=== PATIENT | female | born 1970 | race African-American/Black ===

== ENCOUNTER 2016-08-13 00:30 | Inpatient (IN) | payer OTHER ==
[~2016-08-13] VITALS: Ht 167.6 cm; Wt 61.2 kg
[2016-08-13 00:30] VITALS: BP 122/74; PULSE 94; RESP 18; TEMP 98; O2SAT 99
[~2016-08-13 00:30] MED LIST: BENZ1TAB PO; HALO5 PO; REST15CA PO; TRAZ100T50 PO
[2016-08-13] MEDS ORDERED: ALUMINUM/MAGNESIUM/SIMETH 30 ML CUP PO PRN (01:15)
[2016-08-13] MEDS ORDERED: LORazepam 1 MG TAB PO PRN (01:15)
[2016-08-13] MEDS ORDERED: LORazepam 2 MG/ML VIAL IM PRN (01:15)
[2016-08-13 06:13] VITALS: BP 111/69; PULSE 78; RESP 18; TEMP 97.9; O2SAT 98
[2016-08-13] MEDS ORDERED: OLANZapine 5 MG TAB PO SCH (09:00)
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
[2016-08-13] MEDS: SERTRALINE HCL 50 MG TAB PO SCH (12:00)
[2016-08-13] MEDS: BENZTROPINE MESYLATE 1 MG TAB PO SCH ×2 (12:00→20:09)
[2016-08-13 18:32] VITALS: BP 100/69; PULSE 84; RESP 18; TEMP 98.2; O2SAT 99
[2016-08-13] MEDS: OLANZapine 10 MG TAB PO SCH (20:09)
[2016-08-13] MEDS: ACETAMINOPHEN 325 MG TAB PO PRN (22:31)
[2016-08-14 06:13] VITALS: BP 114/76; PULSE 76; RESP 16; TEMP 97.6
[2016-08-14] MEDS: SERTRALINE HCL 50 MG TAB PO SCH (09:00)
[2016-08-14] MEDS: OLANZapine 5 MG TAB PO SCH (09:17)
[2016-08-14] MEDS: BENZTROPINE MESYLATE 1 MG TAB PO SCH ×2 (09:17→20:22)
--- NOTE | 2016-08-14 10:51 | HHI.PYPN ---
Subjective Remarks Patient was seen and discussed with the icu staff nurse. Patient remained somewhat preoccupied and religiously preoccupied about with flights of ideas some rapid speech talking about spirits. But no behavior or management problem reported. She has been taking the medication. No side effects were complained. She has been having difficulty with the sleep we will adjust the medication. Encouraged to participate in all the therapeutic activity on the floor. Continue with the same treatment Review of Systems Except as stated in HPI: all other systems reviewed are Neg Psychiatric: COMPLAINS OF: Mood changes, Depression, Delusions Objective Alert: Yes [place]: Person, Place Mood: Other (somewhat hyper) Affect: Labile Memory Intact: Recent (mildly impaired) Hallucinations: Other (patient denies any active auditory or visual hallucination but seems to be responding to some internal stimuli) Delusions: Yes Delusion Type: Grandiose, Other (church preoccupation and with flights of ideas) Suicidal: Ideation (denies any suicidal ideation intentions or plan) Homicidal: Ideation (denies) Insight/Judgement Limited Remarks Attention and concentration improving. Gait normal. Language normal. Fund of knowledge average Vitals/IOs Vital Signs Date Time Temp Pulse Resp B/P Pulse Ox O2 Delivery O2 Flow Rate FiO2 08/14/16 06:13 97.6 76 16 114/76 08/13/16 18:32 99 Assessment & Plan Problem List: (1) schizoaffective disorder depressed Assessment & Plan Estimated LOS: days Justification for Cont. Inpt. Monitoring of the medication to stabilize her mood and risk of decompensation Request HC Surrog/Guard Advoc?: No Burt Rios MD Aug 14, 2016 10:51
[2016-08-14 19:10] VITALS: BP 106/65; PULSE 70; RESP 16; TEMP 97.9
[2016-08-14] MEDS: OLANZapine 10 MG TAB PO SCH (20:22)
[2016-08-15 06:11] VITALS: BP 108/101; PULSE 78; RESP 19; TEMP 97.4
[2016-08-15] MEDS: BENZTROPINE MESYLATE 1 MG TAB PO SCH ×2 (08:55→20:25)
[2016-08-15] MEDS: OLANZapine 5 MG TAB PO SCH (08:55)
[2016-08-15] MEDS: SERTRALINE HCL 50 MG TAB PO SCH (08:55)
[2016-08-15] MEDS: MAGNESIUM HYDROXIDE SUSP 30 ML CUP PO PRN (09:08)
--- NOTE | 2016-08-15 10:41 | HHI.PYPN ---
Subjective Remarks Patient was seen and discussed with the staffing specialist. Patient remains religiously preoccupied with hyper spirituality. She stated that ever since her mother when she was about 19 patient has been hearing voices. She also was talking to herself today hallucinating activity with the flights of ideas we will adjust the medication patient needs to stay in the hospital for stabilization on the medication. No behavior or management problem reported. Patient denied any active suicidal ideation intentions or plan and willing to take the medication Review of Systems Except as stated in HPI: all other systems reviewed are Neg Psychiatric: COMPLAINS OF: Mood changes, Depression, Hallucinations, Delusions Objective Alert: Yes [place]: Person, Place Mood: Other (somewhat hyper with flights of ideas and talking to herself internally preoccupied) Affect: Labile Memory Intact: Recent (mildly impaired) Hallucinations: Auditory, Other (patient was actively hallucinating internally preoccupied and talking to herself) Delusions: Yes Delusion Type: Grandiose, Other (jehovah's witness preoccupation and with flights of ideas) Suicidal: Ideation (denies any suicidal ideation intentions or plan) Homicidal: Ideation (denies) Insight/Judgement Limited Vitals/IOs Vital Signs Date Time Temp Pulse Resp B/P Pulse Ox O2 Delivery O2 Flow Rate FiO2 08/15/16 06:11 97.4 78 19 108/101 08/13/16 18:32 99 Assessment & Plan Problem List: (1) schizoaffective disorder depressed Assessment & Plan Estimated LOS: days Justification for Cont. Inpt. Monitoring of the medication risk of decompensation patient needs to be in the hospital for observation and stabilization on the medicine Request HC Surrog/Guard Advoc?: No Burt Rios MD Aug 15, 2016 10:41
[2016-08-15] MEDS: OLANZapine 10 MG TAB PO SCH ×2 (10:45→20:25)
[2016-08-15 19:28] VITALS: BP 109/70; PULSE 104; RESP 17; TEMP 98.8; O2SAT 97
[2016-08-16 05:10] VITALS: BP 113/68; PULSE 70; RESP 16; TEMP 97.7
[2016-08-16] MEDS: OLANZapine 10 MG TAB PO SCH ×2 (08:49→21:13)
[2016-08-16] MEDS: SERTRALINE HCL 50 MG TAB PO SCH (08:49)
[2016-08-16] MEDS: BENZTROPINE MESYLATE 1 MG TAB PO SCH ×2 (08:49→21:13)
--- NOTE | 2016-08-16 15:45 | HHI.PYPN ---
Subjective Remarks Patient was seen and case discussed with nursing. Patient describes delusions of a sexual nature. Where she feels like someone is inside of her. Auditory hallucinations described as spirits. Denies suicidal ideations thought or plan. Compliant with medications Objective Alert: Yes [place]: Person, Place Mood: Other (somewhat hyper with flights of ideas and talking to herself internally preoccupied) Affect: Labile Memory Intact: Recent (mildly impaired) Hallucinations: Auditory (spirits), Other (patient was actively hallucinating internally preoccupied and talking to herself) Delusions: Yes Delusion Type: Grandiose, Other (mandaen preoccupation and with flights of ideas) Suicidal: Ideation (denies any suicidal ideation intentions or plan) Homicidal: Ideation (denies) Insight/Judgement Poor Vitals/IOs Vital Signs Date Time Temp Pulse Resp B/P Pulse Ox O2 Delivery O2 Flow Rate FiO2 08/16/16 05:10 97.7 70 16 113/68 08/15/16 19:28 97 Assessment & Plan Problem List: (1) schizoaffective disorder depressed Assessment & Plan Continue current treatment plan Justification for Cont. Inpt. Patient would decompensate in a less restrictive setting Request HC Surrog/Guard Advoc?: No Wilton Lai DO Aug 16, 2016 15:45
[2016-08-16 18:58] VITALS: BP 98/64; PULSE 80; RESP 16; O2SAT 98
[2016-08-16] MEDS: MAGNESIUM HYDROXIDE SUSP 30 ML CUP PO PRN (21:17)
[2016-08-17 05:28] VITALS: BP 110/58; PULSE 72; RESP 20; TEMP 97.9; O2SAT 98
[2016-08-17] MEDS: SERTRALINE HCL 50 MG TAB PO SCH (09:11)
[2016-08-17] MEDS: OLANZapine 10 MG TAB PO SCH ×2 (09:11→20:23)
[2016-08-17] MEDS: BENZTROPINE MESYLATE 1 MG TAB PO SCH ×2 (09:12→20:23)
[2016-08-17] MEDS: MAGNESIUM HYDROXIDE SUSP 30 ML CUP PO PRN (09:12)
--- NOTE | 2016-08-17 15:01 | HHI.PYPN ---
Subjective Remarks Patient was seen and case discussed with nursing. Patient is pleasant and cooperative with exam. Continues to have hallucinations telling nurses lottery numbers. However during the interview she denies auditory or visual hallucinations. Complaining of constipation. Denies suicidal ideations thought or plan Objective Alert: Yes [place]: Person, Place Mood: Other (somewhat hyper with flights of ideas and talking to herself internally preoccupied) Affect: Labile Memory Intact: Recent (mildly impaired) Hallucinations: Auditory (spirits), Other (patient was actively hallucinating internally preoccupied and talking to herself) Delusions: Yes Delusion Type: Grandiose, Other (anabaptist preoccupation and with flights of ideas) Suicidal: Ideation (denies any suicidal ideation intentions or plan) Homicidal: Ideation (denies) Insight/Judgement Poor Vitals/IOs Vital Signs Date Time Temp Pulse Resp B/P Pulse Ox O2 Delivery O2 Flow Rate FiO2 08/17/16 05:28 97.9 72 20 110/58 98 Assessment & Plan Problem List: (1) schizoaffective disorder depressed Assessment & Plan [place] Justification for Cont. Inpt. Patient would decompensate in a less restrictive setting Request HC Surrog/Guard Advoc?: No Wilton Lai DO Aug 17, 2016 15:01
[2016-08-17 18:39] VITALS: BP 114/70; PULSE 62; RESP 18; O2SAT 98
[2016-08-17] MEDS: DOCUSATE SODIUM 100 MG CAP PO SCH (20:23)
[2016-08-18 05:37] VITALS: BP 108/73; PULSE 63; RESP 18; TEMP 97.9; O2SAT 99
[2016-08-18] MEDS: OLANZapine 10 MG TAB PO SCH ×2 (08:22→21:00)
[2016-08-18] MEDS: DOCUSATE SODIUM 100 MG CAP PO SCH ×2 (08:22→21:00)
[2016-08-18] MEDS: SERTRALINE HCL 50 MG TAB PO SCH (08:22)
[2016-08-18] MEDS: BENZTROPINE MESYLATE 1 MG TAB PO SCH ×2 (08:22→21:00)
--- NOTE | 2016-08-18 11:51 | HHI.PYPN ---
Subjective Remarks Patient was seen and case discussed with nursing. Patient continues to have shampoo her hair. Remains grossly disorganized and psychotic. Tells me various lottery numbers she hears from God. Continues to be hyperverbal with a fixed delusion that there is something inside of her vagina but is moving. Compliant with medications Objective Alert: Yes [place]: Person, Place Mood: Other (somewhat hyper with flights of ideas and talking to herself internally preoccupied) Affect: Labile Memory Intact: Recent (mildly impaired) Hallucinations: Auditory (spirits), Other (patient was actively hallucinating internally preoccupied and talking to herself) Delusions: Yes Delusion Type: Grandiose, Other (zoroastrianism preoccupation and with flights of ideas) Suicidal: Ideation (denies any suicidal ideation intentions or plan) Homicidal: Ideation (denies) Insight/Judgement Poor Vitals/IOs Vital Signs Date Time Temp Pulse Resp B/P Pulse Ox O2 Delivery O2 Flow Rate FiO2 08/18/16 05:37 97.9 63 18 108/73 99 Assessment & Plan Problem List: (1) schizoaffective disorder depressed Assessment & Plan Continue current treatment plan Justification for Cont. Inpt. Patient will decompensate in a less restrictive setting Request HC Surrog/Guard Advoc?: No Wilton Lai DO Aug 18, 2016 11:51
[2016-08-18 19:06] VITALS: BP 118/81; PULSE 79; RESP 18; TEMP 97.2; O2SAT 99
[2016-08-19 05:45] VITALS: BP 109/60; PULSE 75; RESP 16; TEMP 97.8
[2016-08-19] MEDS: BENZTROPINE MESYLATE 1 MG TAB PO SCH ×2 (09:57→20:33)
[2016-08-19] MEDS: DOCUSATE SODIUM 100 MG CAP PO SCH ×2 (09:57→20:33)
[2016-08-19] MEDS: OLANZapine 10 MG TAB PO SCH ×3 (09:57→18:00)
[2016-08-19] MEDS: SERTRALINE HCL 50 MG TAB PO SCH (09:57)
--- NOTE | 2016-08-19 11:31 | HHI.PYPN ---
Subjective Remarks Patient was seen and discussed with the staff psychologist. Patient reported that she has been feeling little better with the medication she does not have any side effects from the medication but she still admitted to hearing voices and she is still religiously preoccupied and citing some Bible versus. She does want to go to assisted living facility as she does not have any place to go to. We will assess social media content specialist to look into that. According to the utilization review people insurance [employer] wants to get regnancy test for the patient we will get that done even though is highly unlikely. No behavior or management problem reported. Continue with the same treatment Review of Systems Except as stated in HPI: all other systems reviewed are Neg Psychiatric: COMPLAINS OF: Mood changes, Depression, Hallucinations, Delusions Objective Alert: Yes [place]: Person, Place Mood: Depressed, Other (somewhat hyper with flights of ideas and talking to herself internally preoccupied) Affect: Labile Memory Intact: Recent (mildly impaired) Hallucinations: Auditory (spirits), Other (patient was actively hallucinating internally preoccupied and talking to herself) Delusions: Yes Delusion Type: Grandiose, Other (latter-day preoccupation and with flights of ideas) Suicidal: Ideation (denies any suicidal ideation intentions or plan) Homicidal: Ideation (denies) Insight/Judgement Fair to limited Vitals/IOs Vital Signs Date Time Temp Pulse Resp B/P Pulse Ox O2 Delivery O2 Flow Rate FiO2 08/19/16 05:45 97.8 75 16 109/60 08/18/16 19:06 99 Assessment & Plan Problem List: (1) schizoaffective disorder depressed Assessment & Plan Estimated LOS: days Justification for Cont. Inpt. Risk of decompensation at a lower level of care and monitoring of the medication to stabilize her psychotic thought process Request HC Surrog/Guard Advoc?: No Burt Rios MD Aug 19, 2016 11:31
[2016-08-19 19:56] VITALS: BP 118/73; PULSE 75; RESP 18; TEMP 97.7
[2016-08-20 05:53] VITALS: BP 109/68; PULSE 75; RESP 18; TEMP 98.9; O2SAT 98
[2016-08-20] MEDS: OLANZapine 10 MG TAB PO SCH ×4 (09:36→21:21)
[2016-08-20] MEDS: DOCUSATE SODIUM 100 MG CAP PO SCH ×2 (09:36→21:21)
[2016-08-20] MEDS: SERTRALINE HCL 50 MG TAB PO SCH (09:36)
[2016-08-20] MEDS: BENZTROPINE MESYLATE 1 MG TAB PO SCH ×2 (09:36→21:21)
--- NOTE | 2016-08-20 12:02 | HHI.PYPN ---
Subjective Remarks Patient was seen and discussed with the staff combat information center officer. Patient reported that she has been feeling little bit better but does admit to hearing voices and having some mormon preoccupation and some Bible verses that she wants to either write or recite. No behavior or management problem reported. Patient has been compliant in taking medication. No side effects were complained. She is somewhat preoccupied about her hair and wanting to keep washing it all the time. She also reported that she might need to find another place to stay we will assess rn social work to assist her. Continue with the same treatment adjust the medication Review of Systems Except as stated in HPI: all other systems reviewed are Neg Psychiatric: COMPLAINS OF: Mood changes, Depression, Hallucinations, Delusions Objective Alert: Yes [place]: Person, Place Mood: Depressed, Other (patient is religiously preoccupied) Affect: Labile Memory Intact: Recent (mildly impaired) Hallucinations: Auditory (spirits), Other (occasionally talking to herself) Delusions: Yes Delusion Type: Grandiose, Other (mormon preoccupation and with flights of ideas) Suicidal: Ideation (denies any suicidal ideation intentions or plan) Homicidal: Ideation (denies) Insight/Judgement Limited Vitals/IOs Vital Signs Date Time Temp Pulse Resp B/P Pulse Ox O2 Delivery O2 Flow Rate FiO2 08/20/16 05:53 98.9 75 18 109/68 98 Assessment & Plan Problem List: (1) schizoaffective disorder depressed Assessment & Plan Estimated LOS: days Justification for Cont. Inpt. Risk of decompensation at the lower level of care and monitoring of the medication to stabilize her psychotic thought process Request HC Surrog/Guard Advoc?: No Burt Rios MD Aug 20, 2016 12:02
[2016-08-20 18:00] VITALS: BP 128/76; PULSE 84; RESP 18; TEMP 97.4; O2SAT 98
[2016-08-20 20:23] VITALS: BP 128/76; PULSE 84; RESP 18; TEMP 97.4
[2016-08-21 06:11] VITALS: BP 115/71; PULSE 77; RESP 16; TEMP 98.4
[2016-08-21] MEDS: OLANZapine 10 MG TAB PO SCH ×4 (09:36→21:24)
[2016-08-21] MEDS: BENZTROPINE MESYLATE 1 MG TAB PO SCH ×2 (09:36→21:26)
[2016-08-21] MEDS: DOCUSATE SODIUM 100 MG CAP PO SCH ×2 (09:36→21:24)
[2016-08-21] MEDS: SERTRALINE HCL 50 MG TAB PO SCH ×2 (09:36→21:25)
--- NOTE | 2016-08-21 10:54 | HHI.PYPN ---
Subjective Remarks Patient was seen and discussed with the staff readiness officer. Reportedly patient has been doing okay no behavior or management problem reported. Patient tends to isolate herself and stays in her room. She is preoccupied about her hair. She is less religiously preoccupied but still has some moravian thoughts. Patient denied any suicidal ideation intentions or plan. Her mind is not racing as much as it did before. No side effects were complained from the medication. She has been sleeping okay. Continue with the same treatment. administrative services director to assist her Review of Systems Except as stated in HPI: all other systems reviewed are Neg Psychiatric: COMPLAINS OF: Mood changes, Depression, Delusions Objective Alert: Yes [place]: Person, Place, Situation Mood: Depressed, Other (patient is religiously preoccupied) Affect: Labile Memory Intact: Recent (mildly impaired) Hallucinations: Auditory (sometimes the spirits talk to her), Other ( occasionally talking to herself) Delusions: Yes Delusion Type: Grandiose, Other (moravian preoccupation .) Suicidal: Ideation (denies any suicidal ideation intentions or plan) Homicidal: Ideation (denies) Insight/Judgement Fair to limited Vitals/IOs Vital Signs Date Time Temp Pulse Resp B/P Pulse Ox O2 Delivery O2 Flow Rate FiO2 08/21/16 06:11 98.4 77 16 115/71 08/20/16 18:00 98 Assessment & Plan Problem List: (1) schizoaffective disorder depressed Assessment & Plan Estimated LOS: days Justification for Cont. Inpt. Risk for decompensation at a lower level of care and monitoring of the medication Request HC Surrog/Guard Advoc?: No Burt Rios MD Aug 21, 2016 10:54
[2016-08-21] MEDS: ACETAMINOPHEN 325 MG TAB PO PRN (17:07)
[2016-08-21 18:00] VITALS: BP 112/71; PULSE 81; RESP 18; TEMP 97.7; O2SAT 100
[2016-08-21] MEDS: MAGNESIUM HYDROXIDE SUSP 30 ML CUP PO PRN (21:53)
[2016-08-22] MEDS: ACETAMINOPHEN 325 MG TAB PO PRN (05:51)
[2016-08-22 05:56] VITALS: BP 158/70; PULSE 86; RESP 16; TEMP 98
[2016-08-22] MEDS: DOCUSATE SODIUM 100 MG CAP PO SCH ×2 (09:48→20:38)
[2016-08-22] MEDS: BENZTROPINE MESYLATE 1 MG TAB PO SCH ×2 (09:48→20:38)
[2016-08-22] MEDS: OLANZapine 10 MG TAB PO SCH ×4 (09:48→20:38)
[2016-08-22] MEDS: SERTRALINE HCL 50 MG TAB PO SCH ×2 (09:48→20:38)
--- NOTE | 2016-08-22 11:22 | HHI.PYPN ---
Subjective Remarks Patient was seen and discussed with the entry level staff accountant. Patient reported that she has been feeling much better. Her mind is not racing she is less religiously preoccupied. No behavior or management problem reported. Patient denied any suicidal ideation intentions or plan. Patient is compliant in taking medication. No side effects were complained. Continue with the same treatment. media services coordinator to assist in aftercare and discharge planning Review of Systems Except as stated in HPI: all other systems reviewed are Neg Psychiatric: COMPLAINS OF: Mood changes, Depression, Delusions Objective Alert: Yes [place]: Person, Place, Situation Mood: Depressed, Other (patient is religiously preoccupied but less than before ) Affect: Labile Memory Intact: Recent (mildly impaired) Hallucinations: Auditory (sometimes the spirits talk to her), Other ( occasionally talking to herself) Delusions: Yes Delusion Type: Other (confucianism preoccupation .) Suicidal: Ideation (denies any suicidal ideation intentions or plan) Homicidal: Ideation (denies) Insight/Judgement Fair to limited Remarks Attention and concentration okay gait normal. Language normal. Fund of knowledge average Vitals/IOs Vital Signs Date Time Temp Pulse Resp B/P Pulse Ox O2 Delivery O2 Flow Rate FiO2 08/22/16 05:56 98.0 86 16 158/70 08/21/16 18:00 100 Intake and Output 08/21/16 08/21/16 08/22/16 08:00 16:00 00:00 Intake Total 240 ml Balance 240 ml Assessment & Plan Problem List: (1) schizoaffective disorder depressed Assessment & Plan Estimated LOS: days Justification for Cont. Inpt. Risk of decompensation at a lower level of care and monitoring of the medication Request HC Surrog/Guard Advoc?: No Burt Rios MD Aug 22, 2016 11:22
[2016-08-22 18:47] VITALS: BP 132/69; PULSE 105; RESP 16; O2SAT 95
[2016-08-23 05:40] VITALS: BP 112/81; PULSE 84; RESP 16; TEMP 98
[2016-08-23] MEDS: OLANZapine 10 MG TAB PO SCH ×4 (08:28→20:19)
[2016-08-23] MEDS: DOCUSATE SODIUM 100 MG CAP PO SCH ×2 (08:28→20:19)
[2016-08-23] MEDS: ACETAMINOPHEN 325 MG TAB PO PRN ×2 (08:29→19:39)
[2016-08-23] MEDS: SERTRALINE HCL 50 MG TAB PO SCH ×2 (08:29→20:19)
[2016-08-23] MEDS: BENZTROPINE MESYLATE 1 MG TAB PO SCH ×2 (08:29→20:19)
[2016-08-23] MEDS ORDERED: POLYETHYLENE GLYCOL 17 GM PKG PO ONE (16:45)
--- NOTE | 2016-08-23 17:08 | HHI.PYPN ---
Subjective Remarks Pt seen and discussed with staff. Pt is compliant with medications and denies side effects. She reports that AH are decreasing and mood is better. She continues to engage in bizarre behavior and is noted to have a head full of soap suds upon approach for interview which she says she is using for styling. She c/o of constipation and has not had a bm in a week. No SI/HI. Review of Systems Psychiatric: COMPLAINS OF: Hallucinations Objective Alert: Yes [place]: Person, Place, Situation Mood: Calm, Other (patient is religiously preoccupied but less than before) Affect: Restricted Memory Intact: Recent (mildly impaired) Hallucinations: Auditory (God providing her with lottery numbers), Other ( occasionally talking to herself) Delusions: Yes Delusion Type: Other (mu-ism preoccupation .) Suicidal: Ideation (denies any suicidal ideation intentions or plan) Homicidal: Ideation (denies) Insight/Judgement limited Vitals/IOs Vital Signs Date Time Temp Pulse Resp B/P Pulse Ox O2 Delivery O2 Flow Rate FiO2 08/23/16 05:40 98.0 84 16 112/81 08/22/16 18:47 95 Assessment & Plan Problem List: (1) schizoaffective disorder depressed Assessment & Plan Continue current tx plan. Pt improving. Estimated LOS: days Justification for Cont. Inpt. impairments in reality construction Request HC Surrog/Guard Advoc?: Kiersten Lemos MD Aug 23, 2016 17:08
[2016-08-23 21:55] VITALS: BP 135/76; PULSE 96; RESP 16; TEMP 98; O2SAT 96
[2016-08-24 05:15] VITALS: BP 136/70; PULSE 78; RESP 18; TEMP 98; O2SAT 98
[2016-08-24] MEDS: OLANZapine 10 MG TAB PO SCH ×4 (09:28→19:57)
[2016-08-24] MEDS: DOCUSATE SODIUM 100 MG CAP PO SCH ×2 (09:28→19:56)
[2016-08-24] MEDS: SERTRALINE HCL 50 MG TAB PO SCH ×2 (09:28→19:56)
[2016-08-24] MEDS: BENZTROPINE MESYLATE 1 MG TAB PO SCH ×2 (09:29→19:56)
[2016-08-24] MEDS: ACETAMINOPHEN 325 MG TAB PO PRN ×2 (15:46→19:57)
--- NOTE | 2016-08-24 18:00 | HHI.PYPN ---
Subjective Remarks Pt seen and discussed with staff. Staff report that pt used up all of body wash compulsively washing hair and face. Today restrictions have been put on pt's use of products to prevent damage to skin. Pt reports AH present but are less bothersome today. No SI/HI. Objective Alert: Yes [place]: Person, Place, Date, Situation Mood: Calm, Other (patient is religiously preoccupied but less than before) Affect: Restricted Memory Intact: Recent (mildly impaired) Hallucinations: Auditory (God providing her with lottery numbers), Other ( occasionally talking to herself) Delusions: Yes Delusion Type: Other (jewish preoccupation .) Suicidal: Ideation (denies any suicidal ideation intentions or plan) Homicidal: Ideation (denies) Insight/Judgement limited Vitals/IOs Vital Signs Date Time Temp Pulse Resp B/P Pulse Ox O2 Delivery O2 Flow Rate FiO2 08/24/16 05:15 98.0 78 18 136/70 98 Assessment & Plan Problem List: (1) schizoaffective disorder depressed Assessment & Plan Continue current tx plan. Estimated LOS: days Justification for Cont. Inpt. risk of decompensation Request HC Surrog/Guard Advoc?: No Kiersten Farah MD Aug 24, 2016 18:00
[2016-08-24] MEDS ORDERED: POLYETHYLENE GLYCOL 17 GM PKG PO ONE (18:30)
[2016-08-24 21:00] VITALS: BP 109/64; PULSE 79; TEMP 97; O2SAT 97
[2016-08-25 05:15] VITALS: BP 125/82; PULSE 80; RESP 16; TEMP 97.9
[2016-08-25] MEDS: SERTRALINE HCL 50 MG TAB PO SCH ×2 (08:42→20:16)
[2016-08-25] MEDS: DOCUSATE SODIUM 100 MG CAP PO SCH ×2 (08:42→20:16)
[2016-08-25] MEDS: BENZTROPINE MESYLATE 1 MG TAB PO SCH ×2 (08:42→20:16)
[2016-08-25] MEDS: OLANZapine 10 MG TAB PO SCH ×4 (08:42→20:16)
--- NOTE | 2016-08-25 10:25 | HHI.PYPN ---
Subjective Remarks Patient was seen and discussed with the staffing clerk. Reportedly patient has been doing better. But she is worried about not having any place to go to. She claimed that her insurance company are going to send somebody today to help her find a place to stay. Patient is less religiously preoccupied. No behavior problem reported. No side effects were complained. Patient denied any suicidal and homicidal ideation intentions or plan. Denied any auditory or visual hallucinations. Continue with the same treatment Review of Systems Except as stated in HPI: all other systems reviewed are Neg Psychiatric: COMPLAINS OF: Mood changes, Depression, Delusions Objective Alert: Yes [place]: Person, Place, Date, Situation Mood: Calm, Other (patient is religiously preoccupied but less than before) Affect: Restricted Memory Intact: Recent (mildly impaired) Hallucinations: Auditory (occasionally she hears voices), Other (occasionally talking to herself) Delusions: Yes Delusion Type: Other (jehovah's witness preoccupation .) Suicidal: Ideation (denies any suicidal ideation intentions or plan) Homicidal: Ideation (denies) Insight/Judgement Fair to limited Vitals/IOs Vital Signs Date Time Temp Pulse Resp B/P Pulse Ox O2 Delivery O2 Flow Rate FiO2 08/25/16 05:15 97.9 80 16 125/82 08/24/16 21:00 97 Assessment & Plan Problem List: (1) schizoaffective disorder depressed Assessment & Plan Estimated LOS: days Justification for Cont. Inpt. Risk of decompensation and monitoring of the medication Request HC Surrog/Guard Advoc?: No Burt Rios MD Aug 25, 2016 10:25
[2016-08-25] MEDS: MAGNESIUM HYDROXIDE SUSP 30 ML CUP PO PRN (12:43)
[2016-08-25 19:00] VITALS: BP 128/76; PULSE 100; RESP 16; TEMP 98.8; O2SAT 96
[2016-08-26 05:50] VITALS: BP 127/75; PULSE 68; RESP 17; TEMP 97.8
[2016-08-26] MEDS: DOCUSATE SODIUM 100 MG CAP PO SCH ×2 (09:06→20:32)
[2016-08-26] MEDS: SERTRALINE HCL 50 MG TAB PO SCH ×2 (09:06→21:05)
[2016-08-26] MEDS: BENZTROPINE MESYLATE 1 MG TAB PO SCH ×2 (09:06→20:32)
[2016-08-26] MEDS: OLANZapine 10 MG TAB PO SCH ×4 (09:06→20:32)
--- NOTE | 2016-08-26 10:46 | HHI.PYPN ---
Subjective Remarks Patient was seen and discussed with the staffing specialist. Patient claimed that she has been doing okay and working with the social work administrator and gearcase assembler to find an appropriate place to go to. Patient claimed that she is not hearing any voices. She is not exhibit expressing any voodoo delusional belief at this time. No behavior or management problem reported. Continue with the same treatment Review of Systems Except as stated in HPI: all other systems reviewed are Neg Psychiatric: COMPLAINS OF: Mood changes, Depression, Delusions Objective Alert: Yes [place]: Person, Place, Date, Situation Mood: Calm, Other (patient is religiously preoccupied but less than before) Affect: Restricted Memory Intact: Recent (mildly impaired) Hallucinations: Other (occasionally talking to herself) Delusions: Yes Delusion Type: Other (voodoo preoccupation .) Suicidal: Ideation (denies any suicidal ideation intentions or plan) Homicidal: Ideation (denies) Insight/Judgement Fair Vitals/IOs Vital Signs Date Time Temp Pulse Resp B/P Pulse Ox O2 Delivery O2 Flow Rate FiO2 08/26/16 05:50 97.8 68 17 127/75 08/25/16 19:00 96 Assessment & Plan Problem List: (1) schizoaffective disorder depressed Assessment & Plan Estimated LOS: days Justification for Cont. Inpt. Monitoring of the medication Request HC Surrog/Guard Advoc?: No Burt Rios MD Aug 26, 2016 10:46
[2016-08-26 18:32] VITALS: BP 118/83; PULSE 110; RESP 17; TEMP 98.4; O2SAT 98
[2016-08-26] MEDS: ACETAMINOPHEN 325 MG TAB PO PRN (19:22)
[2016-08-27 05:52] VITALS: BP 127/73; PULSE 85; RESP 16; TEMP 98.5; O2SAT 98
[2016-08-27] MEDS: BENZTROPINE MESYLATE 1 MG TAB PO SCH ×2 (08:13→20:38)
[2016-08-27] MEDS: SERTRALINE HCL 50 MG TAB PO SCH ×2 (08:13→20:38)
[2016-08-27] MEDS: DOCUSATE SODIUM 100 MG CAP PO SCH ×2 (08:13→20:38)
[2016-08-27] MEDS: OLANZapine 10 MG TAB PO SCH ×4 (08:13→20:38)
[2016-08-27] MEDS: ACETAMINOPHEN 325 MG TAB PO PRN ×2 (11:03→20:38)
--- NOTE | 2016-08-27 11:06 | HHI.DS ---
Psychiatry Discharge Summary Inpatient Psychiatric care?: Yes Advance Directive: No Reason Not Provided: Mental Health AdvanceDirective: No Health Care Proxy: No Admission Admission Date Aug 13, 2016 at 00:30 Admission Diagnosis: (1) schizoaffective disorder depressed GAF Score: 45 Brief History This is a 46-year-old white female who went to [facility] voluntarily. To get some help. Patient claimed that she had stopped taking the medication and started to have some hallucinations and delusions. She became psychotic. And was religiously preoccupied. She claimed that she was taking Zyprexa and Cogentin or Haldol and Cogentin but then she also complained about having some side effect. Patient denied any active suicidal ideation intentions or plan. She wanted to get back on her medications so she went to the hospital where she was [place] acted but she is willing to sign voluntary and cooperate with the treatment and take the medication. No behavior or management problem reported. Patient claimed that she has been emotionally sick for a long time and has been taking medication but for the last few weeks she stopped taking it. But the medication she does fairly well. And follows up as an outpatient with her psychiatrist. Patient denied any history of substance abuse but she occasionally does admit to drink. Tobacco Use In Past 30 Days: No Tobacco Past 30 Days Alcohol Use: Never Hospital Course Patient was started was supportive treatment. She persevered in all the therapeutic activity on the floor. Her medication was adjusted. She started to feel better. She was evaluated by an [facility] and patient was feeling hopeful about being accepted and wanting to be discharged and follow-up as an outpatient. Patient denied any suicidal ideation intentions of plan she still has some jewish preoccupation but no behavior problem reported. Denied any auditory or visual hallucinations willing to take the medication at that point arrangements were made for her to be discharged Results Blood Pressure 127 / 73 Vital Signs Date Time Temp Pulse Resp B/P Pulse Ox O2 Delivery O2 Flow Rate FiO2 08/27/16 05:52 98.5 85 16 127/73 98 Please see the EMR Summary of Major Lab Results Nothing significant Summary of Procedures None Imaging None Pending results at discharge: No Medications # of Antipsychotic meds at D/C: 1 Appropriate >1 Antipsych meds?: 2 Approp Antipsych med options 1 - Minimum of three failed multiple trials of monotherapy. Discharge Discharge Date: Aug 27, 2016 Discharge Diagnosis: (1) schizoaffective disorder depressed Diagnosis: Principal Mental Status Exam at Disch Patient was alert oriented 3 cooperative casually dressed. Her speech was clear. Patient denied any suicidal ideation intentions or plan. Denied any active auditory or visual hallucinations. She was mildly religiously preoccupied but no behavior problem reported. Willing to follow-up as an outpatient and take the medication Pt Condition on Discharge: Stable Discharge Disposition: [facility] Discharge Instructions Diet Instructions: As Tolerated, No Restrictions Activities you can perform: Regular-No Restrictions Scheduled Appointment: [facility] Discharge Time <= 30 minutes Discharge/Advance Care Plan Health Problems: (1) schizoaffective disorder depressed Goals to promote your health * To prevent worsening of your condition and complications * To maintain your health at the optimal level Directions to meet your goals Take your medications as prescribed Follow your dietary instruction Follow activity as directed Keep your appointments as scheduled Take your immunizations and boosters as scheduled If your symptoms worsen call your PCP, if no PCP go to Urgent Care Center or Emergency Room For 23/02 questions related to your inpatient stay or results of tests pending at discharge, please contact Dr. Burt Rios at Smoking is Dangerous to Your Health. Avoid second hand smoking Burt Rios MD Aug 27, 2016 11:06
[2016-08-27] MEDS ORDERED: OLAN10TA PO (11:08)
[2016-08-27] MEDS ORDERED: BENZ1TAB PO (11:08)
[2016-08-27] MEDS ORDERED: ZOLO50TA PO (11:08)
[2016-08-27 18:37] VITALS: BP 135/59; PULSE 95; RESP 16; TEMP 98.6; O2SAT 100
[2016-08-28 05:00] VITALS: BP 113/47; PULSE 90; RESP 16; TEMP 98.2; O2SAT 99
[2016-08-28] MEDS: SERTRALINE HCL 50 MG TAB PO SCH (09:10)
[2016-08-28] MEDS: OLANZapine 10 MG TAB PO SCH ×2 (09:11→12:59)
[2016-08-28] MEDS: DOCUSATE SODIUM 100 MG CAP PO SCH (09:11)
[2016-08-28] MEDS: BENZTROPINE MESYLATE 1 MG TAB PO SCH (09:11)
--- NOTE | 2016-08-28 10:16 | HHI.PYPN ---
Subjective Remarks Patient was seen and discussed with the chief of staff. Patient was not able to be discharged yesterday because the bed was not available. It is available today so patient will be discharged she feels hopeful. No behavior or management problem reported. Denied any suicidal ideation intentions or plan. Denied any auditory or visual hallucinations. She had some islam preoccupation. Willing to take the medication and follow-up as an outpatient will discharge today Review of Systems Except as stated in HPI: all other systems reviewed are Neg Psychiatric: COMPLAINS OF: Mood changes, Depression Objective Alert: Yes [place]: Person, Place, Date, Situation Mood: Calm, Other (patient is religiously preoccupied but less than before) Affect: Restricted Memory Intact: Recent (mildly impaired) Hallucinations: Other (occasionally talking to herself) Delusions: Yes Delusion Type: Other (islam preoccupation .) Suicidal: Ideation (denies any suicidal ideation intentions or plan) Homicidal: Ideation (denies) Insight/Judgement Fair to limited Vitals/IOs Vital Signs Date Time Temp Pulse Resp B/P Pulse Ox O2 Delivery O2 Flow Rate FiO2 08/28/16 05:00 98.2 90 16 113/47 99 Assessment & Plan Problem List: (1) schizoaffective disorder depressed Assessment & Plan Estimated LOS: days Justification for Cont. Inpt. Patient will be discharged today Request HC Surrog/Guard Advoc?: No Burt Rios MD Aug 28, 2016 10:15
== END 2016-08-28 13:55 | DRG 885 ==
LOC: H260 00:30
PROVIDERS: ADMIT Psychiatry & Neurology Psychiatry; ATTEND Psychiatry & Neurology Psychiatry
DX: F25.1 Schizoaffective disorder, depressive type (principal); Z91.14 Patient's other noncompliance with medication regimen; K59.00 Constipation, unspecified; Z81.8 Family history of other mental and behavioral disorders